=== PATIENT | female | born 1990 | race Caucasian/White ===

== ENCOUNTER 2020-10-29 19:56 | Day surgery (SDC) | payer OTHER ==
[2020-10-29 20:29] VITALS: BMI 23.6
[2020-10-29] MEDS ORDERED: Ondansetron PF 4 MG/2 ML Vial IVP PRN (20:57)
[2020-10-29] MEDS ORDERED: Metoclopramide HCl 10 MG/2 ML VIAL IVP SCH (21:00)
[2020-10-29] MEDS ORDERED: diphenhydrAMINE 25 MG in Sodium Chloride 0.9% 50 ML IVPB SCH (21:00)
[2020-10-29] MEDS ORDERED: Dextrose 5%-Lactated Ringers 1,000 ML IV SCH (21:05)
[2020-10-29] MEDS ORDERED: diphenhydrAMINE 50 MG/ML VIAL IVP SCH (21:15)
[2020-10-29 21:46] LABS: ALT (SGPT) 12 U/L (8-55); AST (SGOT) 18 U/L (5-34); Albumin 3.6 g/dL (3.5-5.0); Alkaline Phosphatase 159 U/L (40-110); Anion Gap 15 mmol/L (10-20); BUN (Urea Nitrogen) 10 mg/dL (7.0-18.7); Bilirubin, Total 0.8 mg/dL (0.2-1.2); Calc. Creatinine Clearance 121 mL/min (70-130); Calcium 8.2 mg/dL (7.8-10.44); Carbon Dioxide 21 mmol/L (22-29); Chloride 104 mmol/L (98-107); Glucose 166 mg/dL (70-105); Potassium 3.7 mmol/L (3.5-5.1); Protein, Total 6.6 g/dL (6.0-8.3); Sodium 136 mmol/L (136-145)
== END 2020-10-29 23:49 | disposition home or self-care (01) ==
LOC: CSHLD/OP 19:56
PROVIDERS: ATTEND Student in an Organized Health Care Education/Training Program
DX: O99.613 Diseases of the digestive system complicating pregnancy, third trimester (principal); K52.9 Noninfective gastroenteritis and colitis, unspecified; Z3A.36 36 weeks gestation of pregnancy; Z86.16 Personal history of COVID-19
CPT/HCPCS: 80053; 96360; 96374; 99283; J1200; J2405; J2765

== ENCOUNTER 2020-11-24 10:15 | Inpatient (IN) | payer OTHER ==
[2020-11-24] MEDS ORDERED: Lidocaine 1% (PF) 30 ML VIAL SC PRN (11:11)
[2020-11-24] MEDS ORDERED: hydrALAZINE 20 MG/ML VIAL SLOW IVP PRN (11:11)
[2020-11-24] MEDS ORDERED: HYDROcodone/Acetaminophen 5/325 mg Tablet PO PRN (11:11)
[2020-11-24] MEDS ORDERED: Ibuprofen 800 MG TAB PO PRN (11:11)
[2020-11-24] MEDS ORDERED: Ondansetron PF 4 MG/2 ML Vial IVP PRN (11:11)
[2020-11-24] MEDS ORDERED: NS w/ Oxytocin 30 units 500 ML IVPB PRN (11:54)
[2020-11-24 12:04] LABS: Hemoglobin 12.5 g/dL (12.0-15.5); Mean Corpuscular HGB CONC 35.2 g/dL (32.0-36.0); Mean Corpuscular Hemoglobin 31.6 pg (27.0-33.0); Mean Corpuscular Volume 89.6 fl (81.6-98.3); Mean Platelet Volume 9.2 fl (7.4-10.4); Platelet Count 185 10x3/uL (150-450); RBC Distribution Width 12.5 % (11.5-14.5); Red Blood Cell (RBC) Count 3.96 10x6/uL (3.90-5.03); White Blood Cell (WBC) Count 11.3 10x3/uL (3.5-10.5)
[2020-11-24 12:46] LABS: Hep B Surf Ag Non-Reactive S/CO (NonReactive); Syphilis Antibody Nonreactive (Nonreactive); Syphilis Antibody Index 0.03 S/CO (<1.00 Non-Reactive)
[2020-11-24 12:47] LABS: HBSAg Index 0.15 S/CO (0-0.99)
[2020-11-24 13:51] VITALS: BMI 23.6
[2020-11-24 22:32] LABS: SARS-CoV-2 PCR by NAA Not Detected (NotDetected)
[2020-11-25] MEDS: Butorphanol Tartrate 1 MG/ML VIAL SLOW IVP PRN ×3 (00:46→05:08)
[2020-11-25] MEDS: NS w/ Oxytocin 30 units 500 ML IVPB SCH ×2 (03:22→10:45)
[2020-11-25] MEDS: Lactated Ringer's 1,000 ML IV SCH ×4 (03:22→16:26)
[2020-11-25] MEDS ORDERED: Fentanyl 4 mcg/Bup 0.1% Cadd 100 ML ONE (06:59)
[2020-11-25] MEDS ORDERED: ePHEDrine 50 MG/ML VIAL SLOW IVP PRN (07:59)
[2020-11-25] MEDS ORDERED: Promethazine HCl 25 MG/ML VIAL IM PRN ×2 (07:59→14:55)
[2020-11-25] MEDS ORDERED: diphenhydrAMINE 50 MG/ML VIAL IVP PRN (07:59)
[2020-11-25] MEDS ORDERED: Lactated Ringer's 500 ML IV PRN (07:59)
[2020-11-25] MEDS ORDERED: Eucerin (Mineral Oil/Petrolatum,White) 30 gm Jar TOP PRN (07:59)
[2020-11-25] MEDS ORDERED: Naloxone HCl 0.4 mg/ml Vial IVP PRN ×2 (07:59)
[2020-11-25] MEDS ORDERED: Ondansetron PF 4 MG/2 ML Vial IVP PRN ×2 (07:59→14:55)
[2020-11-25] MEDS ORDERED: Acetaminophen 325 MG TAB PO PRN (07:59)
[2020-11-25] MEDS ORDERED: Communication Order-Pharmacy FS SCH (08:00)
[2020-11-25] MEDS ORDERED: Fentanyl 4 mcg/Bupivacaine 0.1% Cassette 100 ML EPIDURAL SCH (08:00)
[2020-11-25] MEDS ORDERED: Benzocaine-Menthol 82.5 ML CAN TOP PRN (14:55)
[2020-11-25] MEDS ORDERED: Bisacodyl 10 MG SUPP PR PRN (14:55)
[2020-11-25] MEDS ORDERED: HYDROcodone/Acetaminophen 5/325 mg Tablet PO PRN ×2 (14:55)
[2020-11-25] MEDS ORDERED: Adacel (T-DAP) 0.5 ML SYRINGE IM ONE (14:55)
[2020-11-25] MEDS ORDERED: diphenhydrAMINE 25 MG CAP PO PRN (14:55)
[2020-11-25] MEDS ORDERED: Lanolin Ointment 7 GM TUBE TOP PRN (14:55)
[2020-11-25] MEDS ORDERED: hydrALAZINE 20 MG/ML VIAL SLOW IVP PRN (14:55)
[2020-11-25] MEDS ORDERED: Milk Of Magnesia 30 ML UDCUP PO PRN (14:55)
[2020-11-25] MEDS ORDERED: Preparation H Ointment 28 GM TUBE PR PRN (14:55)
[2020-11-25] MEDS ORDERED: NS w/ Oxytocin 30 units 500 ML IV SCH (15:30)
[2020-11-25] MEDS: Ibuprofen 800 MG TAB PO SCH ×2 (16:25→22:14)
[2020-11-25] MEDS: Ferrous Sulfate 325 MG TAB PO SCH (20:14)
[2020-11-25] MEDS: Docusate Calcium (SURFAK) 240 MG CAP PO SCH (22:00)
[2020-11-26] MEDS: Ibuprofen 800 MG TAB PO SCH ×3 (06:19→23:14)
[2020-11-26] MEDS: Prenatal Vitamin 1 TAB PO SCH (08:32)
[2020-11-26] MEDS: Docusate Calcium (SURFAK) 240 MG CAP PO SCH ×2 (08:32→21:18)
[2020-11-26] MEDS: Ferrous Sulfate 325 MG TAB PO SCH ×2 (08:32→17:57)
[2020-11-27 10:03] VITALS: BP 112/64; TEMP 98.1
[2020-11-27] MEDS: Ibuprofen 800 MG TAB PO SCH (10:38)
[2020-11-27] MEDS: Docusate Calcium (SURFAK) 240 MG CAP PO SCH (10:38)
[2020-11-27] MEDS: Ferrous Sulfate 325 MG TAB PO SCH ×2 (10:39→10:42)
[2020-11-27] MEDS: Prenatal Vitamin 1 TAB PO SCH (10:40)
== END 2020-11-27 12:15 | disposition home or self-care (01) | DRG 807 ==
LOC: CSHLD/OP 10:15 → CSHLD 22:48 → CSHPED 11-25 13:30
PROVIDERS: ADMIT Student in an Organized Health Care Education/Training Program; ATTEND Student in an Organized Health Care Education/Training Program
PROC: 10E0XZZ Delivery of Products of Conception, External Approach (ICD-10-PCS; principal; 2020-11-25)
PROC: 4A0HXCZ Measurement of Products of Conception, Cardiac Rate, External Approach (ICD-10-PCS; 2020-11-25)
PROC: 0KQM0ZZ Repair Perineum Muscle, Open Approach (ICD-10-PCS; 2020-11-25)
PROC: 10H07YZ Insertion of Other Device into Products of Conception, Via Natural or Artificial Opening (ICD-10-PCS; 2020-11-25)
DX: O76 Abnormality in fetal heart rate and rhythm complicating labor and delivery (principal); Z37.0 Single live birth; O70.1 Second degree perineal laceration during delivery; Z3A.39 39 weeks gestation of pregnancy
CPT/HCPCS: 36415; 51702; 85027; 86780; 86850; 86900; 86901; 87340; 87635; 99285; J0595; J2405; J2590; U0003; U0005

== ENCOUNTER 2023-04-13 02:31 | Inpatient (IN) | payer OTHER ==
[2023-04-13 02:59] VITALS: BMI 24.3
[2023-04-13] MEDS: Lactated Ringer's 1,000 ML IV SCH ×3 (03:00→07:29)
[2023-04-13] MEDS ORDERED: Penicillin G Potassium 5 MILL.UNITS VIAL ONE (03:05)
[2023-04-13] MEDS ORDERED: hydrALAZINE 20 MG/ML VIAL SLOW IVP PRN ×2 (03:15→13:51)
[2023-04-13] MEDS ORDERED: Promethazine HCl 25 MG/ML VIAL IM PRN ×3 (03:15→13:51)
[2023-04-13] MEDS ORDERED: Ondansetron PF 4 MG/2 ML Vial IVP PRN ×3 (03:15→13:51)
[2023-04-13] MEDS ORDERED: Oxytocin 30 units/NS 500 ML 500 ML IVPB SCH (03:30)
[2023-04-13] MEDS ORDERED: Misoprostol 200 MCG TAB RC PRN (03:30)
[2023-04-13] MEDS ORDERED: Penicillin G Potassium 5 MILL.UNITS in Sodium Chloride 0.9% 100 ML IVPB SCH (03:30)
[2023-04-13] MEDS ORDERED: Ibuprofen 800 MG TAB PO PRN (03:30)
[2023-04-13] MEDS ORDERED: Oxytocin 30 units/NS 500 ML 500 ML IV SCH (03:30)
[2023-04-13] MEDS ORDERED: Lidocaine 1% (PF) 30 ML VIAL SC PRN (03:30)
[2023-04-13] MEDS ORDERED: Diphenoxylate HCl/Atropine Tablet PO PRN (03:30)
[2023-04-13] MEDS ORDERED: Methylergonovine 0.2 MG/ML VIAL IM PRN (03:30)
[2023-04-13] MEDS ORDERED: Carboprost 250 MCG/ML AMP IM PRN (03:30)
[2023-04-13] MEDS ORDERED: HYDROcodone/Acetaminophen 5/325 mg Tablet PO PRN ×3 (03:30→13:51)
[2023-04-13 03:32] LABS: Hematocrit 32.1 % (34.9-44.5); Mean Corpuscular HGB CONC 34.3 g/dL (32.0-36.0); Mean Corpuscular Hemoglobin 30.2 pg (27.0-33.0); Mean Corpuscular Volume 88.2 fl (81.6-98.3); Mean Platelet Volume 9.5 fl (7.4-10.4); Platelet Count 241 10x3/uL (150-450); RBC Distribution Width 12.6 % (11.5-14.5); Red Blood Cell (RBC) Count 3.64 10x6/uL (3.90-5.03); White Blood Cell (WBC) Count 15.2 10x3/uL (3.5-10.5)
[2023-04-13 04:06] LABS: Syphilis Antibody Nonreactive (Nonreactive); Syphilis Antibody Index 0.05 S/CO (<1.00 Non-Reactive)
[2023-04-13 04:11] LABS: HBSAg Index 0.19 S/CO (0-0.99); Hep B Surf Ag - L&D Non-Reactive S/CO (NonReactive)
[2023-04-13] MEDS ORDERED: fentaNYL/Ropivacaine Epidural 100 ML ONE (04:16)
[2023-04-13] MEDS ORDERED: diphenhydrAMINE 50 MG/ML VIAL IVP PRN (05:30)
[2023-04-13] MEDS ORDERED: Lactated Ringer's 500 ML IV PRN (05:30)
[2023-04-13] MEDS ORDERED: Naloxone HCl 0.4 mg/ml Vial IVP PRN ×2 (05:30)
[2023-04-13] MEDS ORDERED: fentaNYL 2 mcg/Ropivacaine 0.2% Epidural 100 ML CADD EPIDURAL SCH (05:30)
[2023-04-13] MEDS ORDERED: Acetaminophen 325 MG TAB PO PRN (05:30)
[2023-04-13] MEDS ORDERED: ePHEDrine Sulfate 50 MG/10 ML VIAL SLOW IVP PRN (05:30)
[2023-04-13] MEDS ORDERED: Communication Order-Pharmacy FS SCH (05:30)
[2023-04-13] MEDS ORDERED: Moisturizing Cream (Eucerin) 113 GM JAR TOP PRN (05:30)
[2023-04-13] MEDS ORDERED: Penicillin G 2.5 MILL.units 2.5 MILL.UNITS in Premix Bag 1 BAG IVPB SCH (07:30)
[2023-04-13] MEDS ORDERED: Bisacodyl 10 MG SUPP PR PRN (13:51)
[2023-04-13] MEDS ORDERED: Boostrix 0.5 ML (Tdap) VIAL (>/=7 yrs of age) IM ONE (13:51)
[2023-04-13] MEDS ORDERED: Lanolin Ointment 7 GM TUBE TOP PRN (13:51)
[2023-04-13] MEDS ORDERED: Preparation H Ointment 28 GM TUBE PR PRN (13:51)
[2023-04-13] MEDS ORDERED: Milk Of Magnesia 30 ML UDCUP PO PRN (13:51)
[2023-04-13] MEDS ORDERED: diphenhydrAMINE 25 MG CAP PO PRN (13:51)
[2023-04-13] MEDS ORDERED: Benzocaine-Menthol 82.5 ML CAN TOP PRN (13:51)
[2023-04-13] MEDS: Ferrous Sulfate 325 MG TAB PO SCH (19:07)
[2023-04-13] MEDS: Ibuprofen 800 MG TAB PO SCH ×2 (19:33→21:27)
[2023-04-13] MEDS ORDERED: Bupivacaine 0.25% HCL 30 ML VIAL ONE (19:47)
[2023-04-13] MEDS: Docusate 100 MG CAP PO SCH (21:27)
[2023-04-14] MEDS: Ibuprofen 800 MG TAB PO SCH (06:29)
[2023-04-14 07:43] VITALS: BP 107/83; TEMP 98
[2023-04-14] MEDS: Docusate 100 MG CAP PO SCH (08:29)
[2023-04-14] MEDS: Ferrous Sulfate 325 MG TAB PO SCH (08:30)
[2023-04-14] MEDS ORDERED: Prenatal Vitamin 1 TAB PO SCH (09:00)
== END 2023-04-14 13:45 | disposition home or self-care (01) | DRG 807 ==
LOC: CSHLD/OP 02:31 → CSHLD 02:52 → CSHPED 14:15
PROVIDERS: ADMIT Student in an Organized Health Care Education/Training Program; ATTEND Student in an Organized Health Care Education/Training Program
PROC: 10E0XZZ Delivery of Products of Conception, External Approach (ICD-10-PCS; principal; 2023-04-13)
PROC: 0HQ9XZZ Repair Perineum Skin, External Approach (ICD-10-PCS; 2023-04-13)
DX: O70.0 First degree perineal laceration during delivery (principal); Z37.0 Single live birth; Z3A.40 40 weeks gestation of pregnancy
CPT/HCPCS: 36415; 51702; 85027; 86780; 86850; 86900; 86901; 87340; 99285; J2405; J2540; J7120; S0020

== ENCOUNTER → 2025-06-01 | Day surgery (SDC) | payer BC ==
[2025-05-29 08:18] VITALS: BMI 20.9
[2025-05-29 08:51] LABS: Hematocrit 32.5 % (34.9-44.5); Hemoglobin 10.6 g/dL (12.0-15.5); Mean Corpuscular Hemoglobin 29.0 pg (27.0-33.0); Mean Corpuscular Volume 88.8 fL (81.6-98.3); Platelet Count 333 10x3/uL (150-450); Red Blood Cell (RBC) Count 3.66 10x6/uL (3.90-5.03); White Blood Cell (WBC) Count 5.72 10x3/uL (3.5-10.5)
[~2025-06-01] MED LIST: CEFAZOLIN 2 GM VIAL ONE; Ketorolac Tromethamine 30 MG (1 mL) VIAL ONE; Ondansetron PF 4 MG/2 ML Vial ONE; PROPOFOL 40 ML ONE; SUCCINYLCHOLINE/SOD CL,ISO/PF 200 MG/10 ML SYRINGE FS ONE; Silver Nitrate Application 1 EACH ONE
== END ==
LOC: CSHSDC 10:06
PROVIDERS: ATTEND Student in an Organized Health Care Education/Training Program
PROC: 10D18ZZ Extraction of Products of Conception, Retained, Via Natural or Artificial Opening Endoscopic (ICD-10-PCS; principal; 2025-06-01)
DX: O03.4 Incomplete spontaneous abortion without complication (principal); Z88.1 Allergy status to other antibiotic agents
CPT/HCPCS: 85027; 86850; 86900; 86901; 88305; J1885; J2250; J2405; J2704; J3010